=== PATIENT | female | born 1995 | race Two or more races ===

== ENCOUNTER → 2018-03-14 | Outpatient (REF) | payer SELFPAY ==
[2018-03-14 18:15] LABS: ALBUMIN 3.5 GM/DL (3.2-5.2); ALKALINE PHOSPHATASE 83 U/L (45-117); ALT/SGPT 22 U/L (12-78); ANION GAP 3 MEQ/L (8-16); AST/SGOT 14 U/L (7-37); BILIRUBIN,TOTAL 0.3 MG/DL (0.2-1.0); BLOOD UREA NITROGEN 15 MG/DL (7-18); CARBON DIOXIDE LEVEL 29 MEQ/L (21-32); CHLORIDE LEVEL 107 MEQ/L (98-107); CREATININE FOR GFR 0.71 MG/DL (0.55-1.30); GLOMERULAR FILTRATION RATE > 60.0 (>60); GLUCOSE, FASTING 70 MG/DL (70-100); POTASSIUM SERUM 4.4 MEQ/L (3.5-5.1); SODIUM LEVEL 139 MEQ/L (136-145); TOTAL PROTEIN 7.4 GM/DL (6.4-8.2)
== END ==
LOC: M LAB REF 17:34
DX: Z83.3 Family history of diabetes mellitus (principal)

== ENCOUNTER → 2018-08-27 | Outpatient (CLI) | payer OTHER | LOC: M RAD 07:11 | DX: Z87.51 Personal history of pre-term labor (principal) | CPT/HCPCS: 76801 ==

== ENCOUNTER → 2018-10-22 | Outpatient (CLI) | payer OTHER | LOC: M RAD 06:27 | DX: Z34.90 Encounter for supervision of normal pregnancy, unspecified, unspecified trimester (principal); Z3A.20 20 weeks gestation of pregnancy | CPT/HCPCS: 76811 ==

== ENCOUNTER → 2019-02-12 | Outpatient (REF) | payer OTHER | LOC: M LAB REF 13:35 | PROVIDERS: ATTEND Obstetrics & Gynecology | DX: Z34.83 Encounter for supervision of other normal pregnancy, third trimester (principal) ==

== ENCOUNTER 2019-03-01 19:11 | Outpatient (CLI) | payer OTHER ==
[~2019-03-01] VITALS: Ht 157.5 cm; Wt 65.5 kg
[2019-03-01 19:55] VITALS: BP 139/75
--- NOTE | 2019-03-01 20:16 | IPNPDOC ---
Text Note Date of Service The patient was seen on 03/01/19. NOTE 23yo RACHEAL 03/14/19. Pt of Jaqueline. Presents @ 38w1d with complaints of pelvic pain yesterday while walking and sporadic back pain lasting a few seconds. Denies bleeding or LOF. Hx significant for one delivery @ 36 wks followed by a term delivery at home, unplanned. Pt reports she is planning to deliver @ [facility] no matter what. She states they plan to induce her @ 39 wks at [facility]. NAD, chatting with family Cat I tracing, rare UC SVE FT/50/-3, soft, posterior Not laboring. Discharged home. Routine labor precautions. Enc pt to have office visit with provider this week. Pt verbalized understanding. Tammy June CNM Mar 01, 2019 20:16
== END 2019-03-01 20:10 | disposition home or self-care (01) ==
LOC: M LDO 19:11
PROVIDERS: ATTEND Advanced Practice Midwife
DX: O26.893 Other specified pregnancy related conditions, third trimester (principal); R10.30 Lower abdominal pain, unspecified; Z3A.38 38 weeks gestation of pregnancy

== ENCOUNTER 2019-03-02 10:37 | Inpatient (IN) | payer OTHER ==
[~2019-03-02] VITALS: Ht 157.5 cm; Wt 63.6 kg
[2019-03-02] VITALS (14 sets, daily range): BP systolic 107–123; BP diastolic 58–81
[2019-03-02] MEDS ORDERED: LACTATED RINGER'S 1000 ML IV STA (11:59)
[2019-03-02] MEDS ORDERED: VANCOMYCIN HCL 1,000 MG, VIAL MATE ADAPTER 1 EACH in D5W 250 ML IV SCH (12:30)
[2019-03-02] MEDS ORDERED: LR 1,000 ML IV SCH ×2 (12:30→19:10)
[2019-03-02 12:36] LABS: HEMATOCRIT 36.7 % (36.0-47.0); HEMOGLOBIN 11.2 g/dl (12.0-15.5); MEAN CORPUSCULAR HEMOGLOBIN 21.5 pg (27.0-33.0); MEAN CORPUSCULAR HGB CONC 30.5 g/dl (32.0-36.5); MEAN CORPUSCULAR VOLUME 70.6 fl (80.0-96.0); PLATELET COUNT, AUTOMATED 395 10^3/uL (150-450); WHITE BLOOD COUNT 13.6 10^3/uL (4.0-10.0)
[2019-03-02 12:57] LABS: AMPHETAMINES URINE REFLEX NEGATIVE (NEGATIVE); BARBITURATES URINE REFLEX NEGATIVE (NEGATIVE); BENZODIAZEPINES URINE REFLEX NEGATIVE (NEGATIVE); CANNABINOIDS URINE REFLEX NEGATIVE (NEGATIVE); COCAINE METABOLITE URINE REFLE NEGATIVE (NEGATIVE); METHADONE URINE REFLEX NEGATIVE (NEGATIVE); OPIATES URINE REFLEX NEGATIVE (NEGATIVE); PHENCYCLIDINE URINE REFLEX NEGATIVE (NEGATIVE)
--- NOTE | 2019-03-02 14:13 | NUR ---
L&D H&P HPI: 23 year old at weeks estimated gestation. Expected date of confinement: 03/14/19. dated by a first trimester ultrasound. Presents today with painful, frequent uterine contractions. Seen in L&D triage yesterday with similar complaint of painful, frequent contractions and was found to be less than 1cm dilated. Reports bloody show / mucous discharge since her triage visit. Denies heavy vaginal bleeding, loss of fluid, or uterine contractions. Reports regular movement. care has been with [facility] (Swathi/Frankie): uncomplicated but notable for OB history of precipitous labors. labs: Blood type A+, antibody screen negative, rubella immune, VDRL nonreactive , hepatitis B surface antigen negative, HIV negative, hepatitis C antibody negative, GC/CT negative, aneuploidy/maternal serum screening: not done, 1 hour glucose challenge test: 61, GBS positive Vaccinations:declined Tdap Radiology/OB US: no anomalies or placental abnormalities detected. History Past medical history: none (multiple dental caries) Surgical history: none Medications: PNV Allergies: PCN (anaphylaxis) [employer] history: no dysplasia or STI/gHSV OB history: Dec 2011, 36 weeks . Oct 2016, 40 weeks (largest 5lbs 3oz) Social history: no t/e/d Family history: none reported Objective Vitals: Normotensive, normal heart rate, afebrile Heart: Regular rate and rhythm. No murmurs, rubs or gallops. Lungs: Clear to auscultation bilaterally. No wheezes, crackles, rales or rhonchi. Abdomen: Uterine fundal height consistent with dates. No guarding or rebound tenderness. Extremities: No clubbing, cyanosis or edema. Normal deep tendon reflexes. Sterile vaginal exam: 4-5 cm, 90 %effacement, -2 station, cephalic, intact External monitoring: heart rate category 1 Tocodynamometer: contractions occurring every 3-7 min Assessment/Plan 23 year old at 38+2 weeks gestation. Diagnosis: active labor at term. Reassuring and maternal status. -Admit to labor and delivery with routine labs and orders -External monitoring and tocodynamometer -Pediatrics and anesthesia consultations as needed. -GBS prophylaxis with IV Vancomycin Dr. Jhony Castaneda, DO, FACOG
[2019-03-02] MEDS ORDERED: OXYTOCIN 30 UNITS IN 0.9% NaCl 500ML IV BAG (J2590) As Ordered ONE (18:47)
--- NOTE | 2019-03-02 19:08 | NUR ---
Delivery note Spontaneous vaginal delivery Estimated gestational age at delivery: 38+2 weeks The active phase and second stage of labor progressed in normal fashion without epidural anesthesia. Patient did not Pitocin labor augmentation. She received a full course of GBS prophylaxis. Pt had screened GBS+ The head delivered left occiput anterior and restituted left occiput transverse. A loose nuchal cord was noted. The anterior shoulder delivered with gentle downward guidance and the remainder of the body delivered with ease. The nuchal cord was reduced. Cord clamping was delayed for approximately 1 minute after delivery. After doubly clamping the cord, I cut the cord. The was placed on the patient's chest for immediate bonding. [place] data: Apgars 8 and 9. weight 2730 grams 6 pounds, 0 ounces. Time of delivery: 185. Sex: Female. The third stage of labor was actively managed with a bolus of IV Pitocin (30 units in 500 mL of normal saline). The placenta delivered completely intact with no missing cotyledons at 1856. A three-vessel cord with a central insertion was noted. After delivery of the placenta, the uterine fundus was approximately 2 cm below the umbilicus and firm. IV Pitocin was continued to maintain uterine tone. A normal, low level of uterine bleeding was noted. The cervix, vagina, vulva and perineum were inspected for lacerations. No laceration was noted. Excellent hemostasis was noted. Estimated blood loss: 200ml. All sponges, needles, and instruments were accounted for per [employer] department protocol. Jhony Castaneda D.O., F.Patrick.Cookie.
[2019-03-02] MEDS ORDERED: OXYTOCIN DRIP 30 UNITS in APPROPRIATE DILUENT 1 EA IV SCH (19:10)
[2019-03-02] MEDS ORDERED: ONDANSETRON 4MG/2ML VIAL (J2405) IV PRN (19:15)
[2019-03-02] MEDS ORDERED: IBUPROFEN 800 MG TAB PO PRN (19:15)
[2019-03-02] MEDS ORDERED: ACETAMINOPHEN 500 MG TAB PO PRN (19:15)
[2019-03-02] MEDS ORDERED: RHOGAM 300 MCG (1500 IU) INJ (J2790) IM SCH (19:15)
[2019-03-02] MEDS ORDERED: MEASLES,MUMPS,RUBELLA VACCINE INJ (MMR-II) (90707) SC SCH (19:15)
[2019-03-02] MEDS ORDERED: PROMETHAZINE 25 MG TAB PO PRN (19:15)
[2019-03-02] MEDS ORDERED: DIBUCAINE 1% OINTMENT 30GM TOP PRN (19:15)
[2019-03-02] MEDS ORDERED: DOCUSATE SODIUM 100 MG CAP PO PRN (19:15)
[2019-03-03 06:00] VITALS: BP 88/52
--- NOTE | 2019-03-03 07:57 | NUR ---
Day 1 Status post , uncomplicated Subjective Pain is well controlled. Lochia decreasing and minimal. Voiding spontaneously. Tolerating a regular diet. Ambulating without any assistance. Denies any subjective fever/chills/nausea/vomiting/headache/visual changes/shortness of breath/chest pain. Objective Vitals: Normotensive, normal heart rate, afebrile, adequate urine output. Heart: regular, rate, and rhythm. no murmurs/gallops/rubs Lungs: clear to auscultation bilaterally, no wheezes/crackles/rales/ronchi Abd: soft, nontender, nondistended, uterine fundus is 2cm below umbilicus and firm Ext: no significant edema, nontender, negative Coretta's bilaterally. Assessment/Plan: day 1. Recovering well. Hemodynamically stable, afebrile, good pain control. -Routine care -Discharge to home tomorrow -Routine infectious, fever, pain, and bleeding precautions reviewed Rosario Vargas.Shaquille., F.A.C.O.G.
[2019-03-03] MEDS: PRENATAL VITAMINS CHEWABLE TABLET PO SCH (10:30)
[2019-03-03 18:05] VITALS: BP 122/72
[2019-03-04 06:00] VITALS: BP 105/54
--- NOTE | 2019-03-04 06:20 | NUR ---
Day 2 Status post , uncomplicated Subjective Pain is well controlled. Lochia decreasing and minimal. Voiding spontaneously. Tolerating a regular diet. Ambulating without any assistance. Denies any subjective fever/chills/nausea/vomiting/headache/visual changes/shortness of breath/chest pain. Objective Vitals: Normotensive, normal heart rate, afebrile, adequate urine output. Heart: regular, rate, and rhythm. no murmurs/gallops/rubs Lungs: clear to auscultation bilaterally, no wheezes/crackles/rales/ronchi Abd: soft, nontender, nondistended, uterine fundus is 2cm below umbilicus and firm Ext: no significant edema, nontender, negative Coretta's bilaterally. Assessment/Plan: day 2. Recovering well. Hemodynamically stable, afebrile, good pain control. -Routine care -Discharge to home today -Routine infectious, fever, pain, and bleeding precautions reviewed Dr. Jhony Castaneda D.O., F.A.C.O.G.
[2019-03-04] MEDS ORDERED: MAPA500T2 PO (07:13)
[2019-03-04] MEDS ORDERED: PRENTAB9 PO (07:13)
[2019-03-04] MEDS ORDERED: IBUP-1114 PO (07:13)
[2019-03-04] MEDS: PRENATAL VITAMINS CHEWABLE TABLET PO SCH (07:23)
== END 2019-03-04 12:45 | disposition home or self-care (01) | DRG 560 ==
LOC: M LDI 10:37 → M OBS 21:00
PROVIDERS: ADMIT Obstetrics & Gynecology; ATTEND Obstetrics & Gynecology
PROC: 10E0XZZ Delivery of Products of Conception, External Approach (ICD-10-PCS; principal; 2019-03-02)
DX: O99.824 Streptococcus B carrier state complicating childbirth (principal); O69.81X0 Labor and delivery complicated by cord around neck, without compression, not applicable or unspecified; Z3A.38 38 weeks gestation of pregnancy; Z37.0 Single live birth

== ENCOUNTER → 2019-03-25 | Outpatient (REF) | payer OTHER ==
[~2019-03-25] MED LIST: IBUP-1114 PO; MAPA500T2 PO; PRENTAB9 PO
[2019-03-25 19:13] LABS: FREE T4 0.83 NG/DL (0.76-1.46); THYROID STIMULATING HORMONE 0.65 uIU/ML (0.358-3.740)
== END ==
LOC: M LAB REF 16:36
PROVIDERS: ATTEND Nurse Practitioner Family
DX: Z13.9 Encounter for screening, unspecified (principal)

== ENCOUNTER 2019-06-21 17:02 | Emergency (ER) | payer OTHER ==
[~2019-06-21] VITALS: Ht 154.9 cm; Wt 63.2 kg
[2019-06-21 17:03] VITALS: BP 123/71
== END 2019-06-21 19:00 | disposition left against medical advice (07) ==
LOC: M ED 17:02
DX: M54.9 Dorsalgia, unspecified (principal); Z53.21 Procedure and treatment not carried out due to patient leaving prior to being seen by health care provider

== ENCOUNTER 2019-06-23 16:53 | Emergency (ER) | payer OTHER ==
[~2019-06-23] VITALS: Ht 154.9 cm; Wt 61.4 kg
[2019-06-23] MEDS ORDERED: NAPR-885 PO (18:58)
[2019-06-23 19:03] VITALS: BP 129/76
== END 2019-06-23 19:03 | disposition home or self-care (01) ==
LOC: M ED 16:53
DX: M75.81 Other shoulder lesions, right shoulder (principal); M62.838 Other muscle spasm; J45.909 Unspecified asthma, uncomplicated; Z85.41 Personal history of malignant neoplasm of cervix uteri; Z72.0 Tobacco use; Z88.0 Allergy status to penicillin

== ENCOUNTER → 2022-02-07 | Outpatient (CLI) | payer OTHER ==
[~2022-02-07] MED LIST changes: +NAPR-885 PO
== END ==
LOC: M WUC 13:29
DX: J45.909 Unspecified asthma, uncomplicated (principal)

== ENCOUNTER 2022-04-10 21:44 | Emergency (ER) | payer MEDICAID, OTHER ==
[2022-04-10] MEDS ORDERED: ALBU8.5H (22:02)
[2022-04-10] MEDS ORDERED: MONT10TA97 (22:02)
[2022-04-10] MEDS ORDERED: NORCO, ANEXSIA 5/325MG TABLET (HYDROcodone/ACETAMINOPHEN) PO ONE (22:20)
[2022-04-10] MEDS ORDERED: BOOSTRIX/ADACEL VACCINE (DIPHTH/PERTUSS/ACELL/TETANUS) 0.5ML SYR IM ONE (23:30)
[2022-04-11] VITALS: BP 149/86
== END 2022-04-11 00:21 | disposition home or self-care (01) ==
LOC: M ED 21:44
DX: S01.01XA Laceration without foreign body of scalp, initial encounter (principal); S43.101A Unspecified dislocation of right acromioclavicular joint, initial encounter; T07.XXXA Unspecified multiple injuries, initial encounter; V09.20XA Pedestrian injured in traffic accident involving unspecified motor vehicles, initial encounter; Y92.410 Unspecified street and highway as the place of occurrence of the external cause; J45.909 Unspecified asthma, uncomplicated; Z88.0 Allergy status to penicillin; Z88.1 Allergy status to other antibiotic agents; M25.78 Osteophyte, vertebrae; M48.02 Spinal stenosis, cervical region; Z79.899 Other long term (current) drug therapy

== ENCOUNTER → 2022-06-14 | Outpatient (CLI) | payer OTHER, MEDICAID ==
[~2022-06-14] MED LIST changes: +ALBU8.5H; +MONT10TA97
== END ==
LOC: M SOG 08:18
PROVIDERS: ATTEND Orthopaedic Surgery
DX: S43.101A Unspecified dislocation of right acromioclavicular joint, initial encounter (principal); Z53.9 Procedure and treatment not carried out, unspecified reason

== ENCOUNTER → 2022-10-18 | Outpatient (REF) | payer OTHER, MEDICAID ==
[2022-10-18 13:24] LABS: HEMATOCRIT 42.4 % (36.0-47.0); HEMOGLOBIN 13.1 g/dl (12.0-15.5); MEAN CORPUSCULAR HEMOGLOBIN 24.8 pg (27.0-33.0); MEAN CORPUSCULAR HGB CONC 30.9 g/dl (32.0-36.5); MEAN CORPUSCULAR VOLUME 80.2 fl (80.0-96.0); PLATELET COUNT, AUTOMATED 323 10^3/uL (150-450); RED BLOOD COUNT 5.29 10^6/uL (4.00-5.40); WHITE BLOOD COUNT 6.1 10^3/uL (4.0-10.0)
[2022-10-18 14:27] LABS: HCG, SERUM QUANTITATIVE 62708.1 MIU/ML (<4.2); HEPATITIS B SURFACE ANTIGEN NEGATIVE (NEGATIVE); HEPATITIS C VIRUS ABY INDEX 0.1 INDEX (<0.8); HIV 1&2 SCREEN CENTAUR NEGATIVE (NEGATIVE)
== END ==
LOC: M LAB REF 12:47
PROVIDERS: ATTEND Obstetrics & Gynecology
DX: O36.80X0 Pregnancy with inconclusive fetal viability, not applicable or unspecified (principal)

== ENCOUNTER → 2022-11-29 | Outpatient (CLI) | payer MEDICAID, OTHER ==
[~2022-11-29] MED LIST changes: +MULTTAB20 PO
== END ==
LOC: M LAB 11:38
PROVIDERS: ATTEND Obstetrics & Gynecology
DX: Z34.82 Encounter for supervision of other normal pregnancy, second trimester (principal)

== ENCOUNTER 2022-11-30 12:12 | Emergency (ER) | payer MEDICAID ==
[~2022-11-30] VITALS: Ht 154.9 cm; Wt 59.0 kg
[~2022-11-30 12:12] MED LIST changes: -MULTTAB20 PO
[2022-11-30] MEDS ORDERED: MULTTAB20 PO (12:28)
[2022-11-30 18:44] VITALS: BP 118/60
== END 2022-11-30 18:40 | disposition home or self-care (01) ==
LOC: M ED 18:30
DX: O9A.211 Injury, poisoning and certain other consequences of external causes complicating pregnancy, first trimester (principal); S60.221A Contusion of right hand, initial encounter; Y04.8XXA Assault by other bodily force, initial encounter; Y92.511 Restaurant or cafe as the place of occurrence of the external cause; Z3A.12 12 weeks gestation of pregnancy; Z88.0 Allergy status to penicillin; Z88.1 Allergy status to other antibiotic agents

== ENCOUNTER → 2023-01-10 | Outpatient (CLI) | payer OTHER ==
[~2023-01-10] MED LIST changes: +MULTTAB20 PO
== END ==
LOC: M WHC 15:03
PROVIDERS: ATTEND Obstetrics & Gynecology
DX: Z36.2 Encounter for other antenatal screening follow-up (principal); Z3A.18 18 weeks gestation of pregnancy

== ENCOUNTER → 2023-02-07 | Outpatient (CLI) | payer MEDICAID, OTHER | LOC: M RAD 08:39 | PROVIDERS: ATTEND Obstetrics & Gynecology | DX: Z34.82 Encounter for supervision of other normal pregnancy, second trimester (principal) ==

== ENCOUNTER → 2023-03-13 | Outpatient (CLI) | payer MEDICAID ==
[2023-03-13 13:53] LABS: HEMATOCRIT 36.4 % (36.0-47.0); HEMOGLOBIN 11.3 g/dl (12.0-15.5); MEAN CORPUSCULAR HEMOGLOBIN 24.1 pg (27.0-33.0); MEAN CORPUSCULAR VOLUME 77.8 fl (80.0-96.0); PLATELET COUNT, AUTOMATED 331 10^3/uL (150-450); RED BLOOD COUNT 4.68 10^6/uL (4.00-5.40); WHITE BLOOD COUNT 12.1 10^3/uL (4.0-10.0)
== END ==
LOC: M LAB 11:17
PROVIDERS: ATTEND Obstetrics & Gynecology
DX: Z34.82 Encounter for supervision of other normal pregnancy, second trimester (principal)

== ENCOUNTER → 2023-05-11 | Outpatient (REF) | payer MEDICAID, OTHER | LOC: M LAB REF 11:28 | PROVIDERS: ATTEND Obstetrics & Gynecology | DX: Z34.83 Encounter for supervision of other normal pregnancy, third trimester (principal) ==

== ENCOUNTER 2023-06-10 21:13 | Inpatient (IN) | payer OTHER ==
[~2023-06-10] VITALS: Ht 154.9 cm; Wt 67.3 kg
[~2023-06-10 21:13] MED LIST changes: +OXYTOCIN INJ 10UNITS/ML 1ML VIAL IM ONE
[2023-06-10] MEDS ORDERED: OXYTOCIN INJ 10UNITS/ML 1ML VIAL As Ordered ONE (21:20)
[2023-06-10 21:31] VITALS: BP 146/76
[2023-06-10] MEDS ORDERED: ACETAMINOPHEN TAB 650MG DOSE (2X325MG) PO PRN (21:40)
[2023-06-10] MEDS ORDERED: RHOGAM 300MCG (1500IU) INJ IM SCH (21:40)
[2023-06-10] MEDS ORDERED: DIBUCAINE 1% OINTMENT 30GM TOP PRN (21:40)
[2023-06-10] MEDS ORDERED: IBUPROFEN 800 MG TAB PO PRN (21:40)
[2023-06-10] MEDS ORDERED: DOCUSATE SODIUM 100MG CAPSULE PO PRN (21:40)
[2023-06-10] MEDS ORDERED: OXYTOCIN INJ 10UNITS/ML 1ML VIAL IV ONE (21:40)
[2023-06-10] MEDS ORDERED: IBUPROFEN 600MG TAB PO PRN (21:40)
[2023-06-10] MEDS ORDERED: METHYLERGONOVINE MALEATE 0.2 MG TAB PO PRN (21:40)
[2023-06-10] MEDS ORDERED: ACETAMINOPHEN 500 MG TAB PO PRN (21:40)
[2023-06-10 21:53] VITALS: BP 132/82
[2023-06-10] MEDS ORDERED: MORPHINE 10 MG/ML 1ML VIAL IV ONE (22:00)
[2023-06-10 22:08] VITALS: BP 127/81
[2023-06-10 22:36] LABS: HEMATOCRIT 33.5 % (36.0-47.0); HEMOGLOBIN 10.3 g/dl (12.0-15.5); MEAN CORPUSCULAR HEMOGLOBIN 22.1 pg (27.0-33.0); MEAN CORPUSCULAR HGB CONC 30.7 g/dl (32.0-36.5); MEAN CORPUSCULAR VOLUME 71.7 fl (80.0-96.0); PLATELET COUNT, AUTOMATED 292 10^3/uL (150-450); RED BLOOD COUNT 4.67 10^6/uL (4.00-5.40); WHITE BLOOD COUNT 26.8 10^3/uL (4.0-10.0)
[2023-06-10] MEDS ORDERED: HOME MED LIST COMPLETE! XX SCH (23:50)
[2023-06-11 00:41] VITALS: BP 122/76; O2SAT 98
[2023-06-11 06:00] VITALS: BP 109/56; O2SAT 98
[2023-06-11 06:42] LABS: HEMATOCRIT 30.7 % (36.0-47.0); HEMOGLOBIN 9.4 g/dl (12.0-15.5); MEAN CORPUSCULAR HGB CONC 30.6 g/dl (32.0-36.5); MEAN CORPUSCULAR VOLUME 71.7 fl (80.0-96.0); PLATELET COUNT, AUTOMATED 266 10^3/uL (150-450); RED BLOOD COUNT 4.28 10^6/uL (4.00-5.40)
[2023-06-11 06:47] LABS: WHITE BLOOD COUNT 31.3 10^3/uL (4.0-10.0)
[2023-06-11] MEDS: PRENATAL VITAMINS CHEWABLE TABLET PO SCH (08:35)
[2023-06-11] MEDS ORDERED: HOME MED LIST COMPLETE! XX SCH (12:15)
[2023-06-11 18:00] VITALS: BP 105/58; O2SAT 98
[2023-06-12 06:00] VITALS: BP 118/60; O2SAT 99
[2023-06-12] MEDS: PRENATAL VITAMINS CHEWABLE TABLET PO SCH (08:15)
[2023-06-12] MEDS ORDERED: MEASLES,MUMPS,RUBELLA VACCINE INJ (MMR-II) SC.IMMUN ONE (09:00)
[2023-06-12] MEDS ORDERED: ACET-683 PO (10:29)
[2023-06-12] MEDS ORDERED: IBUP80TA PO (10:29)
== END 2023-06-12 14:00 | disposition home or self-care (01) | DRG 544 ==
LOC: M LDI 21:13 → M OBS 06-11 00:24
PROVIDERS: ADMIT Obstetrics & Gynecology; ATTEND Obstetrics & Gynecology
PROC: 10D17ZZ Extraction of Products of Conception, Retained, Via Natural or Artificial Opening (ICD-10-PCS; principal; 2023-06-10)
DX: O73.0 Retained placenta without hemorrhage (principal); Z3A.39 39 weeks gestation of pregnancy

== ENCOUNTER → 2023-07-10 | Outpatient (REF) | payer OTHER, MEDICAID ==
[~2023-07-10] MED LIST changes: +ACET-683 PO; +IBUP80TA PO; -OXYTOCIN INJ 10UNITS/ML 1ML VIAL IM ONE
== END ==
LOC: M LAB REF 16:24
PROVIDERS: ATTEND Obstetrics & Gynecology
DX: Z13.0 Encounter for screening for diseases of the blood and blood-forming organs and certain disorders involving the immune mechanism (principal); D57.3 Sickle-cell trait

== ENCOUNTER → 2023-07-25 | Outpatient (REF) | payer OTHER, MEDICAID | LOC: M LAB REF 16:59 | PROVIDERS: ATTEND Obstetrics & Gynecology | DX: Z13.0 Encounter for screening for diseases of the blood and blood-forming organs and certain disorders involving the immune mechanism (principal); D57.3 Sickle-cell trait ==

== ENCOUNTER → 2023-12-19 | Outpatient (REF) | payer OTHER, MEDICAID ==
[2023-12-19 14:49] LABS: BASO # 0.1 10^3/uL (0.0-0.2); BASO % 0.7 % (0.0-1.0); EOS # 0.5 10^3/uL (0.0-0.5); EOS % 6.2 % (0.0-3.0); HEMATOCRIT 35.4 % (36.0-47.0); HEMOGLOBIN 10.6 g/dl (12.0-15.5); LYMPH # 2.9 10^3/uL (1.5-5.0); LYMPH % 35.4 % (24.0-44.0); MEAN CORPUSCULAR HEMOGLOBIN 21.8 pg (27.0-33.0); MEAN CORPUSCULAR HGB CONC 29.9 g/dl (32.0-36.5); MEAN CORPUSCULAR VOLUME 72.7 fl (80.0-96.0); MONO # 0.4 10^3/uL (0.0-0.8); MONO % 4.6 % (2.0-8.0); NEUTROPHILS # 4.3 10^3/uL (1.5-8.5); NEUTROPHILS % 52.9 % (36.0-66.0); PLATELET COUNT, AUTOMATED 456 10^3/uL (150-450); RED BLOOD COUNT 4.87 10^6/uL (4.00-5.40); WHITE BLOOD COUNT 8.1 10^3/uL (4.0-10.0)
[2023-12-19 15:06] LABS: ALBUMIN 3.5 G/DL (3.2-5.2); ALKALINE PHOSPHATASE 77 U/L (46-116); ALT/SGPT 18 U/L (7.0-40); AST/SGOT 21 U/L (<34); BILIRUBIN,TOTAL 0.3 MG/DL (0.3-1.2); BLOOD UREA NITROGEN 10 MG/DL (9-23); CALCIUM LEVEL 8.4 MG/DL (8.5-10.1); CARBON DIOXIDE LEVEL 30 MMOL/L (20-31); CHLORIDE LEVEL 106 MMOL/L (98-107); CHOLESTEROL LEVEL 121 MG/DL (<200); CHOLESTEROL RISK RATIO 3.36 (<5); GLOMERULAR FILTRATION RATE > 60.0 (>60); GLUCOSE, FASTING 83 MG/DL (60-100); LDL CHOLESTEROL 76.4 MG/DL (<100); MAGNESIUM LEVEL 2.2 MG/DL (1.8-2.4); POTASSIUM SERUM 3.8 MMOL/L (3.5-5.1); SODIUM LEVEL 142 MMOL/L (136-145); TOTAL PROTEIN 7.3 G/DL (5.7-8.2); TRIGLYCERIDES LEVEL 43 MG/DL (<150)
[2023-12-19 15:07] LABS: THYROID STIMULATING HORMONE 1.171 uIU/ML (0.55-4.78)
[2023-12-19 15:08] LABS: TOTAL 25(OH) VITAMIN D 17.1 NG/ML (20.0-100.0)
[2023-12-19 15:09] LABS: HEMOGLOBIN A1c 5.4 % (4.0-6.0)
== END ==
LOC: M LAB REF 12:25
PROVIDERS: ATTEND Nurse Practitioner Family
DX: E66.3 Overweight (principal); E55.9 Vitamin D deficiency, unspecified

== ENCOUNTER → 2024-03-21 | Outpatient (REF) | payer OTHER, MEDICAID ==
[~2024-03-21] MED LIST changes: +ERGO500029; +FERR325T19
[2024-03-21 14:02] LABS: FOLATE 11.5 NG/ML (>5.4)
== END ==
LOC: M LAB REF 11:49
PROVIDERS: ATTEND Nurse Practitioner Family
DX: D64.9 Anemia, unspecified (principal)

== ENCOUNTER → 2024-04-18 | Outpatient (CLI) | payer OTHER, MEDICAID | LOC: M SOG 07:50 | PROVIDERS: ATTEND Orthopaedic Surgery | DX: M25.511 Pain in right shoulder (principal) ==

== ENCOUNTER → 2024-04-25 | Outpatient (CLI) | payer OTHER, MEDICAID | LOC: M SOG 07:49 | PROVIDERS: ATTEND Orthopaedic Surgery | DX: M25.511 Pain in right shoulder (principal) ==

== ENCOUNTER → 2024-05-08 | Outpatient (CLI) | payer OTHER, MEDICAID | LOC: M SOG 07:52 | PROVIDERS: ATTEND Orthopaedic Surgery | DX: M25.511 Pain in right shoulder (principal) ==

== ENCOUNTER → 2024-06-25 | Outpatient (REF) | payer OTHER, MEDICAID ==
[2024-06-25 13:44] LABS: HEMOGLOBIN 11.1 g/dl (12.0-15.5); MEAN CORPUSCULAR HEMOGLOBIN 22.2 pg (27.0-33.0); MEAN CORPUSCULAR HGB CONC 30.8 g/dl (32.0-36.5); PLATELET COUNT, AUTOMATED 385 10^3/uL (150-450); WHITE BLOOD COUNT 8.9 10^3/uL (4.0-10.0)
[2024-06-25 14:37] LABS: HEPATITIS B SURFACE ANTIGEN NEGATIVE (NEGATIVE); HEPATITIS C VIRUS ABY INDEX 0.04 INDEX (<0.8); HIV 1&2 SCREEN NEGATIVE (NEGATIVE)
[2024-06-25 14:50] LABS: HCG, SERUM QUANTITATIVE 51170.8 MIU/ML (<4.2)
== END ==
LOC: M LAB REF 12:40
PROVIDERS: ATTEND Obstetrics & Gynecology
DX: O36.80X0 Pregnancy with inconclusive fetal viability, not applicable or unspecified (principal)

== ENCOUNTER → 2024-07-23 | Outpatient (CLI) | payer OTHER | LOC: M WHC 07:52 | PROVIDERS: ATTEND Obstetrics & Gynecology | DX: O36.80X0 Pregnancy with inconclusive fetal viability, not applicable or unspecified (principal) ==

== ENCOUNTER 2025-02-22 22:08 | Inpatient (IN) | payer OTHER ==
[~2025-02-22] VITALS: Ht 154.9 cm; Wt 63.6 kg
[2025-02-22] MEDS ORDERED: OXYTOCIN INJ 10UNITS/ML 1ML VIAL As Ordered ONE (22:13)
[2025-02-22] MEDS ORDERED: OXYTOCIN 30UNITS IN 0.9% NaCl 500ML IV BAG As Ordered ONE (22:13)
[2025-02-22] MEDS ORDERED: LIDOCAINE 1% MDV 20ML VIAL INFIL PRN (22:15)
[2025-02-22 22:30] VITALS: BP 132/85
[2025-02-22 22:41] LABS: BASO # 0.1 10^3/uL (0.0-0.2); BASO % 0.6 % (0.0-1.0); EOS # 0.1 10^3/uL (0.0-0.5); EOS % 0.6 % (0.0-3.0); HEMATOCRIT 33.5 % (36.0-47.0); HEMOGLOBIN 10.1 g/dl (12.0-15.5); LYMPH # 4.4 10^3/uL (1.5-5.0); LYMPH % 21.9 % (24.0-44.0); MEAN CORPUSCULAR HEMOGLOBIN 20.1 pg (27.0-33.0); MEAN CORPUSCULAR HGB CONC 30.1 g/dl (32.0-36.5); MEAN CORPUSCULAR VOLUME 66.6 fl (80.0-96.0); MONO # 0.8 10^3/uL (0.0-0.8); NEUTROPHILS # 14.5 10^3/uL (1.5-8.5); NEUTROPHILS % 71.9 % (36.0-66.0); PLATELET COUNT, AUTOMATED 469 10^3/uL (150-450); RED BLOOD COUNT 5.03 10^6/uL (4.00-5.40); WHITE BLOOD COUNT 20.3 10^3/uL (4.0-10.0)
[2025-02-22 22:45] VITALS: BP 130/69
[2025-02-22] MEDS: OXYTOCIN DRIP 30 UNITS in IV 1 EA IV PRN (22:47)
[2025-02-22] MEDS: OXYTOCIN INJ 10UNITS/ML 1ML VIAL IV PRN (22:47)
[2025-02-22] MEDS ORDERED: ACETAMINOPHEN 325 MG TAB PO PRN (22:55)
[2025-02-22] MEDS ORDERED: RHOGAM 300MCG (1500IU) INJ IM SCH (22:55)
[2025-02-22] MEDS ORDERED: METHYLERGONOVINE MALEATE 0.2 MG TAB PO PRN (22:55)
[2025-02-22] MEDS ORDERED: IBUPROFEN 600MG TAB PO PRN (22:55)
[2025-02-22] MEDS ORDERED: DOCUSATE SODIUM 100MG CAPSULE PO PRN (22:55)
[2025-02-22 23:00] VITALS: BP 130/72
[2025-02-22 23:15] VITALS: BP 140/80
[2025-02-22 23:57] VITALS: BP 127/71
[2025-02-23] MEDS: ACETAMINOPHEN 500 MG TAB PO PRN (00:11)
[2025-02-23] MEDS: IBUPROFEN 800 MG TAB PO PRN (00:12)
[2025-02-23 00:30] VITALS: BP 131/78; O2SAT 98
[2025-02-23] MEDS: DIBUCAINE 1% OINTMENT 30GM TOP PRN (01:09)
[2025-02-23 06:00] VITALS: BP 122/77; O2SAT 100
[2025-02-23] MEDS: PRENATAL VITAMINS CHEWABLE TABLET PO SCH (08:12)
[2025-02-23 08:42] LABS: HIV 1&2 SCREEN NEGATIVE (NEGATIVE)
[2025-02-23 08:50] LABS: HEPATITIS C VIRUS ABY INDEX 0.11 INDEX (<0.8)
[2025-02-23 18:17] VITALS: BP 137/81; O2SAT 100
[2025-02-24 06:15] VITALS: BP 128/75; O2SAT 100
[2025-02-24] MEDS: MEASLES,MUMPS,RUBELLA VACCINE INJ (MMR-II) SC.IMMUN ONE (11:59)
== END 2025-02-24 13:06 | disposition home or self-care (01) | DRG 560 ==
LOC: M LDI 22:08 → M OBS 02-23 00:25
PROVIDERS: ADMIT Obstetrics & Gynecology; ATTEND Obstetrics & Gynecology
PROC: 10E0XZZ Delivery of Products of Conception, External Approach (ICD-10-PCS; principal; 2025-02-22)
DX: O62.3 Precipitate labor (principal); O48.0 Post-term pregnancy; Z37.0 Single live birth; Z3A.41 41 weeks gestation of pregnancy